=== PATIENT | female | born 1940 | race African-American/Black ===

== ENCOUNTER 2019-01-28 08:26 | Inpatient (IN) | payer MEDICARE, MEDICAID ==
[~2019-01-28] VITALS: Ht 167.6 cm; Wt 52.2 kg
[2019-01-28 09:22] LABS: BASOPHILS % 0.2 % (0.0-2.0); EOSINOPHILS % 0.1 % (0.0-5.0); HEMATOCRIT. 33.7 % (36.0-48.0); HEMOGLOBIN. 11.1 g/dL (12.0-16.0); LYMPHOCYTES % 20.1 % (20.0-50.0); MEAN CORPUSCULAR HEMOGLOBIN 30.1 pg (28.0-32.0); MEAN CORPUSCULAR VOLUME 91.5 fL (81.0-99.0); MEAN PLATELET VOLUME 7.6 fl (7.4-10.4); MONOCYTES % 8.3 % (2.0-8.0); NEUTROPHILS % 71.3 % (40.0-76.0); PLATELET 244 x1000/uL (130-400); RED BLOOD CELL COUNT 3.69 mill/uL (4.2-5.4); RED CELL DISTRIBUTION WIDTH 15.8 % (11.6-14.6)
[2019-01-28 09:23] LABS: CHLORIDE 108 mEq/L (98-107)
[2019-01-28] MEDS ORDERED: ACETAMINOPHEN 325MG TABLET PO ONE (09:30)
[2019-01-28 09:32] LABS: CLARITY URINE CLOUDY (CLEAR); COLOR URINE YELLOW (YELLOW); KETONES URINE NEGATIVE (NEGATIVE); LEUKOCYTE ESTERASE URINE 2+ (NEGATIVE); NITRITE URINE POSITIVE (NEGATIVE); OCCULT BLOOD URINE TRACE (NEGATIVE); PROTEIN URINE 3+ (NEGATIVE); SPECIFIC GRAVITY URINE 1.013 (1.005-1.030); UROBILINOGEN URINE 0.2 E.U./dL (0.2-1.0)
[2019-01-28] MEDS ORDERED: CEFTRIAXONE 1 G PREMIX 50 ML IV ONE (10:00)
[2019-01-28] MEDS ORDERED: HYDRALAZINE HCL 50MG TABLET PO ONE (11:00)
[2019-01-28 12:00] VITALS: BP 209/84
[2019-01-28] MEDS: CLONIDINE 0.2MG TABLET PO PRN (12:32)
[2019-01-28 12:44] VITALS: BP 209/84
[2019-01-28] MEDS ORDERED: ONDANSETRON HCL 4MG/2ML INJ IV PRN (13:00)
[2019-01-28] MEDS ORDERED: NA PHOS,M-B/NA PHOS,DI-BA ENEMA 118ML PR PRN (13:00)
[2019-01-28] MEDS ORDERED: DOCUSATE SODIUM 100MG CAPSULE PO PRN (13:00)
[2019-01-28] MEDS ORDERED: MAGNESIUM/ALUMINUM HYDROXIDE/SIMETHICONE 30ML UDC PO PRN (13:00)
[2019-01-28] MEDS ORDERED: IPRATROPIUM/ALBUTEROL 0.5-3(2.5)MG/3ML NEB INH PRN (13:00)
[2019-01-28] MEDS ORDERED: GUAIFENESIN 200MG/10ML SUGAR FREE UDC PO PRN (13:00)
[2019-01-28] MEDS ORDERED: NITROGLYCERIN 0.4MG TABLET SL SL PRN (13:00)
[2019-01-28] MEDS: ENOXAPARIN 40MG/0.4ML SYR SUBCUT SCH (14:11)
[2019-01-28] MEDS: AMLODIPINE 10MG TABLET PO SCH (14:12)
[2019-01-28] MEDS: HYDRALAZINE HCL 50MG TABLET PO SCH ×2 (14:13→20:47)
[2019-01-28 14:15] VITALS: BP 113/63
[2019-01-28 14:15] LABS: FOLIC ACID (FOLATE) SERUM 11.4 ng/mL (>5.38)
[2019-01-28] MEDS ORDERED: LEVOFLOXACIN 500MG PREMIX 100 ML IV NR (15:00)
[2019-01-28 15:20] VITALS: BP 159/73
[2019-01-28] MEDS ORDERED: HYDR-4135 PO (15:46)
[2019-01-28] MEDS ORDERED: MEMA5TAB15 PO (15:46)
[2019-01-28] MEDS ORDERED: METO25TA6 PO (15:46)
[2019-01-28] MEDS ORDERED: DONE5TAB7 PO (15:46)
[2019-01-28] MEDS ORDERED: CLOP75TA33 PO (15:46)
[2019-01-28] MEDS ORDERED: CLON0.1T PO (15:46)
[2019-01-28] MEDS ORDERED: [UNRECOGNIZED DRUG - CODE] PO (15:46)
[2019-01-28] MEDS ORDERED: FERR325T6 PO (15:46)
[2019-01-28] MEDS ORDERED: MIRT15TA6 PO (15:46)
[2019-01-28] MEDS ORDERED: SIMV40TA5 PO (15:46)
[2019-01-28] MEDS ORDERED: ENAL20TA PO (15:46)
[2019-01-28 17:48] LABS: CREATINE KINASE 48 IU/L (26-192)
[2019-01-28 17:49] LABS: CREATINE KINASE MB FRACTION < 1.0 ng/mL (0.5-3.6)
[2019-01-28 20:00] VITALS: BP 175/81
[2019-01-28] MEDS: FAMOTIDINE 20MG TABLET PO SCH (20:47)
[2019-01-28] MEDS: ASCORBIC ACID 500 MG TABLET PO SCH (20:47)
[2019-01-28] MEDS: METOPROLOL TARTRATE 25MG TABLET PO SCH (20:47)
[2019-01-28] MEDS: LISINOPRIL 20MG TABLET PO SCH (20:53)
[2019-01-28] MEDS ORDERED: ZOLPIDEM TARTRATE 5MG TABLET PO PRN (21:00)
[2019-01-29] VITALS (7 sets, daily range): BP systolic 117–197; BP diastolic 52–82
[2019-01-29 00:10] LABS: CREATINE KINASE 47 IU/L (26-192)
[2019-01-29 00:11] LABS: CREATINE KINASE MB FRACTION < 1.0 ng/mL (0.5-3.6)
[2019-01-29] MEDS: TRAMADOL 50MG TABLET PO PRN ×2 (05:14→14:18)
[2019-01-29] MEDS: HYDRALAZINE HCL 50MG TABLET PO SCH ×3 (05:14→22:00)
[2019-01-29] MEDS: LISINOPRIL 20MG TABLET PO SCH ×2 (08:15→21:00)
[2019-01-29] MEDS: ZINC SULFATE 220 MG ( 50 ) CAPSULE PO SCH (08:16)
[2019-01-29] MEDS: FAMOTIDINE 20MG TABLET PO SCH (08:16)
[2019-01-29] MEDS: ASCORBIC ACID 500 MG TABLET PO SCH ×2 (08:16→20:40)
[2019-01-29] MEDS: AMLODIPINE 10MG TABLET PO SCH (08:16)
[2019-01-29] MEDS: METOPROLOL TARTRATE 25MG TABLET PO SCH ×2 (08:16→20:40)
[2019-01-29] MEDS: CEFTRIAXONE 1 G PREMIX 50 ML IV SCH (09:26)
[2019-01-29] MEDS: ENOXAPARIN 40MG/0.4ML SYR SUBCUT SCH (13:26)
[2019-01-29] MEDS: LEVOFLOXACIN 250MG PREMIX 50 ML IV SCH (14:12)
[2019-01-29] MEDS: ACETAMINOPHEN 325MG TABLET PO PRN (15:54)
[2019-01-29] MEDS: CLONIDINE 0.2MG TABLET PO PRN (15:55)
[2019-01-30] VITALS: BP 129/78
[2019-01-30 04:00] VITALS: BP 146/62
[2019-01-30] MEDS: ACETAMINOPHEN 325MG TABLET PO PRN ×3 (04:40→20:29)
[2019-01-30] MEDS: HYDRALAZINE HCL 50MG TABLET PO SCH ×2 (06:20→14:13)
[2019-01-30 08:00] VITALS: BP 140/59
[2019-01-30] MEDS: AMLODIPINE 10MG TABLET PO SCH (09:16)
[2019-01-30] MEDS: LISINOPRIL 20MG TABLET PO SCH ×2 (09:16→20:30)
[2019-01-30] MEDS: CEFTRIAXONE 1 G PREMIX 50 ML IV SCH (09:17)
[2019-01-30] MEDS: ZINC SULFATE 220 MG ( 50 ) CAPSULE PO SCH (09:17)
[2019-01-30] MEDS: METOPROLOL TARTRATE 25MG TABLET PO SCH ×2 (09:17→20:31)
[2019-01-30] MEDS: ASCORBIC ACID 500 MG TABLET PO SCH ×2 (09:17→20:31)
[2019-01-30] MEDS: FAMOTIDINE 20MG TABLET PO SCH (09:17)
[2019-01-30 12:00] VITALS: BP 156/55
[2019-01-30] MEDS: LEVOFLOXACIN 250MG PREMIX 50 ML IV SCH (14:13)
[2019-01-30] MEDS: ENOXAPARIN 40MG/0.4ML SYR SUBCUT SCH (14:13)
[2019-01-30 16:00] VITALS: BP_SYST 124; BP_SYST 150; BP_DIAS 46; BP_DIAS 65
[2019-01-30 20:00] VITALS: BP 140/50
[2019-01-31] VITALS: BP 144/52
[2019-01-31] MEDS: HYDRALAZINE HCL 50MG TABLET PO SCH ×4 (00:38→21:00)
[2019-01-31] MEDS: ACETAMINOPHEN 325MG TABLET PO PRN ×3 (00:38→14:35)
[2019-01-31 04:00] VITALS: BP 165/67
[2019-01-31 08:00] VITALS: BP 162/60
[2019-01-31] MEDS: ZINC SULFATE 220 MG ( 50 ) CAPSULE PO SCH (08:37)
[2019-01-31] MEDS: METOPROLOL TARTRATE 25MG TABLET PO SCH ×2 (08:37→20:35)
[2019-01-31] MEDS: FAMOTIDINE 20MG TABLET PO SCH (08:37)
[2019-01-31] MEDS: AMLODIPINE 10MG TABLET PO SCH (08:37)
[2019-01-31] MEDS: ASCORBIC ACID 500 MG TABLET PO SCH ×2 (08:37→20:35)
[2019-01-31] MEDS: LISINOPRIL 20MG TABLET PO SCH ×2 (08:37→20:35)
[2019-01-31] MEDS: CEFTRIAXONE 1 G PREMIX 50 ML IV SCH (09:32)
[2019-01-31 12:00] VITALS: BP 136/55
[2019-01-31] MEDS: ENOXAPARIN 40MG/0.4ML SYR SUBCUT SCH (14:35)
[2019-01-31] MEDS: LEVOFLOXACIN 250MG PREMIX 50 ML IV SCH (14:36)
[2019-01-31 16:00] VITALS: BP 143/59
[2019-01-31 20:00] VITALS: BP 164/52
[2019-02-01] VITALS: BP 152/88
[2019-02-01 04:00] VITALS: BP 160/61
[2019-02-01] MEDS: CLONIDINE 0.2MG TABLET PO PRN (05:21)
[2019-02-01] MEDS: HYDRALAZINE HCL 50MG TABLET PO SCH ×2 (05:21→13:22)
[2019-02-01 08:42] VITALS: BP 144/59
[2019-02-01] MEDS: FAMOTIDINE 20MG TABLET PO SCH (09:10)
[2019-02-01] MEDS: METOPROLOL TARTRATE 25MG TABLET PO SCH (09:10)
[2019-02-01] MEDS: ASCORBIC ACID 500 MG TABLET PO SCH (09:10)
[2019-02-01] MEDS: LISINOPRIL 20MG TABLET PO SCH (09:10)
[2019-02-01] MEDS: AMLODIPINE 10MG TABLET PO SCH (09:11)
[2019-02-01] MEDS: ZINC SULFATE 220 MG ( 50 ) CAPSULE PO SCH (09:11)
[2019-02-01] MEDS: CEFTRIAXONE 1 G PREMIX 50 ML IV SCH (09:13)
[2019-02-01] MEDS ORDERED: LEVOFLOXACIN 250MG TABLET PO SCH (11:00)
[2019-02-01 12:14] VITALS: BP 137/63
[2019-02-01] MEDS ORDERED: CEFAZOLIN 500 MG in DEXTROSE 5% WATER 50 ML IV SCH (13:00)
[2019-02-01] MEDS ORDERED: ENOXAPARIN 30MG/0.3ML SYR SUBCUT SCH (14:00)
[2019-02-01 15:33] VITALS: BP_SYST 121; BP_SYST 137; BP_DIAS 54; BP_DIAS 63
[2019-02-01 16:09] VITALS: BP 121/54
== END 2019-02-01 17:18 | disposition home health service (06) | DRG 689 ==
LOC: ER 08:26 → 8WST 10:04 → EDBEDREQ 10:15 → ENRESERV 10:37
PROVIDERS: ADMIT Internal Medicine; ATTEND Internal Medicine
DX: N39.0 Urinary tract infection, site not specified (principal); G92 Toxic encephalopathy; E44.0 Moderate protein-calorie malnutrition; Z68.1 Body mass index [BMI] 19.9 or less, adult; D63.8 Anemia in other chronic diseases classified elsewhere; E78.5 Hyperlipidemia, unspecified; I10 Essential (primary) hypertension; F03.90 Unspecified dementia, unspecified severity, without behavioral disturbance, psychotic disturbance, mood disturbance, and anxiety; Z96.649 Presence of unspecified artificial hip joint; Z88.6 Allergy status to analgesic agent
CPT/HCPCS: 36415; 71045; 80061; 82550; 82553; 82607; 82746; 83036; 83540; 83550; 83605; 84484; 87077; 93005; 93306; 93970; 96365; 97162; 97166; 97530; 97535; 99291; J0690; J0696; J1650; J1956; J2405; J7050; J7060

== ENCOUNTER 2021-07-05 13:52 | Inpatient (IN) | payer MEDICARE, MEDICAID ==
[~2021-07-05] VITALS: Ht 162.6 cm; Wt 48.5 kg
[~2021-07-05 13:52] MED LIST: CLON0.1T PO; CLOP75TA33 PO; DONE5TAB7 PO; ENAL20TA18 PO; FERR325T6 PO; HYDR-4135 PO; MEMA5TAB42 PO; METO25TA6 PO; MIRT-89 PO; NIFE-72 PO; SIMV-46 PO
[2021-07-05 14:55] LABS: BASOPHILS % 0.4 % (0.0-2.0); EOSINOPHILS % 0.3 % (0.0-5.0); HEMATOCRIT. 35.3 % (36.0-48.0); HEMOGLOBIN. 11.5 g/dL (12.0-16.0); LYMPHOCYTES % 15.2 % (20.0-50.0); MEAN CORPUSCULAR HEMOGLOBIN 30.4 pg (28.0-32.0); MEAN CORPUSCULAR VOLUME 93.3 fL (81.0-99.0); MEAN PLATELET VOLUME 7.8 fl (7.4-10.4); MONOCYTES % 13.7 % (2.0-8.0); NEUTROPHILS % 70.4 % (40.0-76.0); PLATELET 265 x1000/uL (130-400); RED BLOOD CELL COUNT 3.79 mill/uL (4.2-5.4); RED CELL DISTRIBUTION WIDTH 16.3 % (11.6-14.6)
[2021-07-05 15:02] LABS: CHLORIDE 110 mEq/L (98-107)
[2021-07-05 16:06] LABS: CLARITY URINE CLOUDY (CLEAR); COLOR URINE YELLOW (YELLOW); KETONES URINE NEGATIVE (NEGATIVE); LEUKOCYTE ESTERASE URINE 1+ (NEGATIVE); NITRITE URINE NEGATIVE (NEGATIVE); OCCULT BLOOD URINE 2+ (NEGATIVE); PROTEIN URINE 3+ (NEGATIVE); UROBILINOGEN URINE 0.2 E.U./dL (0.2-1.0)
[2021-07-05] MEDS ORDERED: CEFTRIAXONE 1 G PREMIX 50 ML IV ONE (16:30)
[2021-07-05 21:45] VITALS: BP 160/87
[2021-07-05] MEDS ORDERED: TRAM50TA3 PO ×2 (22:01)
[2021-07-05] MEDS ORDERED: TOPUD PO (22:01)
[2021-07-05] MEDS ORDERED: ONDA4TAB5 PO (22:01)
[2021-07-05] MEDS ORDERED: TC1U15 TOP (22:01)
[2021-07-05] MEDS ORDERED: ACETAMINOPHEN 325MG TABLET PO SCH (22:30)
[2021-07-05] MEDS ORDERED: ONDANSETRON HCL 4MG/2ML INJ IV PRN (22:30)
[2021-07-05] MEDS ORDERED: CEFTRIAXONE 1 G PREMIX 50 ML IV SCH (22:30)
[2021-07-05] MEDS: SODIUM CHLORIDE 0.9% 1,000 ML IV SCH (23:11)
[2021-07-05] MEDS: ATORVASTATIN CALCIUM 40MG TABLET PO SCH (23:11)
[2021-07-05] MEDS: HYDRALAZINE HCL 50MG TABLET PO SCH (23:12)
[2021-07-05] MEDS: METOPROLOL TARTRATE 25MG TABLET PO SCH (23:12)
[2021-07-06] VITALS: BP 141/81
[2021-07-06 03:55] VITALS: BP 160/75
[2021-07-06] MEDS: TRAMADOL 50MG TABLET PO PRN ×3 (04:56→16:18)
[2021-07-06] MEDS: HYDRALAZINE HCL 50MG TABLET PO SCH ×3 (06:02→21:44)
[2021-07-06 06:59] LABS: CHLORIDE 111 mEq/L (98-107)
[2021-07-06 07:11] LABS: BASOPHILS % 0.3 % (0.0-2.0); EOSINOPHILS % 1.1 % (0.0-5.0); HEMOGLOBIN. 11.2 g/dL (12.0-16.0); LYMPHOCYTES % 13.6 % (20.0-50.0); MEAN CORPUSCULAR HEMOGLOBIN 30.9 pg (28.0-32.0); MEAN CORPUSCULAR VOLUME 93.8 fL (81.0-99.0); MEAN PLATELET VOLUME 7.6 fl (7.4-10.4); MONOCYTES % 13.2 % (2.0-8.0); NEUTROPHILS % 71.8 % (40.0-76.0); PLATELET 246 x1000/uL (130-400); RED BLOOD CELL COUNT 3.63 mill/uL (4.2-5.4)
[2021-07-06 08:00] VITALS: BP 166/66
[2021-07-06] MEDS: DONEPEZIL HCL 5MG TABLET PO SCH (09:19)
[2021-07-06] MEDS: NIFEDIPINE XL 60MG TAB PO SCH (09:20)
[2021-07-06] MEDS: FERROUS SULFATE 325MG TABLET PO SCH (09:20)
[2021-07-06] MEDS: MEMANTINE HCL 5MG TABLET PO SCH ×2 (09:20→16:18)
[2021-07-06] MEDS: METOPROLOL TARTRATE 25MG TABLET PO SCH ×2 (09:20→16:46)
[2021-07-06] MEDS: ENALAPRIL 5MG TABLET PO SCH (09:21)
[2021-07-06] MEDS: ENOXAPARIN 30MG/0.3ML SYR SUBCUT SCH (09:21)
[2021-07-06] MEDS: PANTOPRAZOLE SODIUM 40 MG/VIAL IV SCH (09:23)
[2021-07-06 12:00] VITALS: BP 124/57
[2021-07-06 13:30] LABS: ETHANOL BLOOD < 10 mg/dL
[2021-07-06 13:38] LABS: T4 FREE 1.09 ng/dL (0.76-1.46)
[2021-07-06 16:00] VITALS: BP 116/56
[2021-07-06] MEDS: SODIUM CHLORIDE 0.9% 1,000 ML IV SCH ×2 (16:11→18:11)
[2021-07-06] MEDS ORDERED: ACETAMINOPHEN 325MG TABLET PO PRN (16:15)
[2021-07-06] MEDS ORDERED: NALOXONE HCL 0.4MG/ML VIAL IV PRN (16:15)
[2021-07-06] MEDS: CEFTRIAXONE 1,000 MG in DEXTROSE 5% WATER 50 ML IV SCH (18:10)
[2021-07-06] MEDS: LACTULOSE 20G/30ML UDC PO SCH (18:49)
[2021-07-06 20:00] VITALS: BP 120/65
[2021-07-06] MEDS ORDERED: ATORVASTATIN CALCIUM 40MG TABLET PO SCH (21:00)
[2021-07-06] MEDS: MIRTAZAPINE 15MG TABLET PO SCH (21:45)
[2021-07-06] MEDS: ATORVASTATIN CALCIUM 40MG TABLET PO SCH (21:45)
[2021-07-07] VITALS (7 sets, daily range): BP systolic 108–158; BP diastolic 51–79
[2021-07-07] MEDS: HYDRALAZINE HCL 50MG TABLET PO SCH ×3 (05:46→21:29)
[2021-07-07] MEDS: TRAMADOL 50MG TABLET PO PRN ×2 (05:47→10:08)
[2021-07-07 09:10] LABS: FOLIC ACID (FOLATE) SERUM 10.8 ng/mL (>5.38)
[2021-07-07] MEDS: ENALAPRIL 5MG TABLET PO SCH (10:06)
[2021-07-07] MEDS: LACTULOSE 20G/30ML UDC PO SCH ×2 (10:06→17:13)
[2021-07-07] MEDS: PANTOPRAZOLE SODIUM 40 MG/VIAL IV SCH (10:06)
[2021-07-07] MEDS: METOPROLOL TARTRATE 25MG TABLET PO SCH ×2 (10:07→17:15)
[2021-07-07] MEDS: ENOXAPARIN 30MG/0.3ML SYR SUBCUT SCH (10:07)
[2021-07-07] MEDS: MEMANTINE HCL 5MG TABLET PO SCH ×2 (10:07→17:14)
[2021-07-07] MEDS: NIFEDIPINE XL 60MG TAB PO SCH (10:07)
[2021-07-07] MEDS: DONEPEZIL HCL 5MG TABLET PO SCH (10:08)
[2021-07-07] MEDS: SODIUM CHLORIDE 0.9% 1,000 ML IV SCH ×3 (10:10→23:30)
[2021-07-07] MEDS: FERROUS SULFATE 325MG TABLET PO SCH (10:12)
[2021-07-07] MEDS: CYANOCOBALAMIN 1000MCG/ML VIAL IM SCH (10:12)
[2021-07-07] MEDS ORDERED: IOHEXOL-300 100 ML BOTTLE ONE (14:36)
[2021-07-07] MEDS: CEFTRIAXONE 1,000 MG in DEXTROSE 5% WATER 50 ML IV SCH (17:13)
[2021-07-07] MEDS: ATORVASTATIN CALCIUM 40MG TABLET PO SCH (21:28)
[2021-07-07] MEDS: MIRTAZAPINE 15MG TABLET PO SCH (21:29)
[2021-07-08 04:00] VITALS: BP 152/58
[2021-07-08] MEDS: ACETAMINOPHEN 325MG TABLET PO PRN ×2 (05:30→17:40)
[2021-07-08] MEDS: HYDRALAZINE HCL 50MG TABLET PO SCH ×3 (05:30→22:24)
[2021-07-08 05:34] LABS: BASOPHILS % 0.1 % (0.0-2.0); EOSINOPHILS % 1.1 % (0.0-5.0); HEMATOCRIT. 29.9 % (36.0-48.0); HEMOGLOBIN. 9.8 g/dL (12.0-16.0); LYMPHOCYTES % 15.9 % (20.0-50.0); MEAN CORPUSCULAR HEMOGLOBIN 30.6 pg (28.0-32.0); MEAN CORPUSCULAR VOLUME 93.7 fL (81.0-99.0); MEAN PLATELET VOLUME 7.8 fl (7.4-10.4); MONOCYTES % 14.2 % (2.0-8.0); NEUTROPHILS % 68.7 % (40.0-76.0); PLATELET 232 x1000/uL (130-400); RED CELL DISTRIBUTION WIDTH 15.8 % (11.6-14.6)
[2021-07-08 06:00] LABS: CHLORIDE 117 mEq/L (98-107)
[2021-07-08 08:00] VITALS: BP 175/79
[2021-07-08] MEDS: LACTULOSE 20G/30ML UDC PO SCH ×2 (09:02→17:00)
[2021-07-08] MEDS: FAMOTIDINE 20MG/2ML VIAL IV SCH (09:02)
[2021-07-08] MEDS: CYANOCOBALAMIN 1000MCG/ML VIAL IM SCH (09:02)
[2021-07-08] MEDS: DONEPEZIL HCL 5MG TABLET PO SCH (09:03)
[2021-07-08] MEDS: ENALAPRIL 5MG TABLET PO SCH (09:03)
[2021-07-08] MEDS: NIFEDIPINE XL 60MG TAB PO SCH (09:03)
[2021-07-08] MEDS: FERROUS SULFATE 325MG TABLET PO SCH (09:03)
[2021-07-08] MEDS: MEMANTINE HCL 5MG TABLET PO SCH ×2 (09:03→17:41)
[2021-07-08] MEDS: METOPROLOL TARTRATE 25MG TABLET PO SCH ×2 (09:04→17:41)
[2021-07-08] MEDS: SODIUM CHLORIDE 0.9% 1,000 ML IV SCH ×2 (10:52→20:30)
[2021-07-08 12:00] VITALS: BP 119/82
[2021-07-08] MEDS: TRAMADOL 50MG TABLET PO PRN (12:44)
[2021-07-08 16:00] VITALS: BP 140/66
[2021-07-08 20:00] VITALS: BP 152/88
[2021-07-08] MEDS: CEFTRIAXONE 1,000 MG in DEXTROSE 5% WATER 50 ML IV SCH (20:15)
[2021-07-08] MEDS: MIRTAZAPINE 15MG TABLET PO SCH (22:24)
[2021-07-08] MEDS: ATORVASTATIN CALCIUM 40MG TABLET PO SCH (22:24)
[2021-07-09] VITALS: BP 122/73
[2021-07-09 04:00] VITALS: BP 162/69
[2021-07-09 05:28] LABS: BASOPHILS % 0.4 % (0.0-2.0); EOSINOPHILS % 0.2 % (0.0-5.0); HEMATOCRIT. 36.5 % (36.0-48.0); HEMOGLOBIN. 11.7 g/dL (12.0-16.0); LYMPHOCYTES % 15.7 % (20.0-50.0); MEAN CORPUSCULAR HEMOGLOBIN 30.1 pg (28.0-32.0); MEAN PLATELET VOLUME 7.8 fl (7.4-10.4); NEUTROPHILS % 75.7 % (40.0-76.0); PLATELET 293 x1000/uL (130-400); RED BLOOD CELL COUNT 3.88 mill/uL (4.2-5.4)
[2021-07-09] MEDS: HYDRALAZINE HCL 50MG TABLET PO SCH (05:56)
[2021-07-09] MEDS: SODIUM CHLORIDE 0.9% 1,000 ML IV SCH ×2 (05:56→15:47)
[2021-07-09 06:06] LABS: CHLORIDE 114 mEq/L (98-107)
[2021-07-09] MEDS ORDERED: PHENYLEPHRINE HCL 10 MG/ML 1ML (IV VIAL) IV ONE (07:12)
[2021-07-09] MEDS ORDERED: PROPOFOL 200MG/20ML VIAL IV ONE (07:58)
[2021-07-09] MEDS ORDERED: FENTANYL CITRATE/PF 50MCG/ML 2ML VIAL ONE (07:58)
[2021-07-09] MEDS ORDERED: MIDAZOLAM HCL 2 MG/2 ML VIAL ONE (07:58)
[2021-07-09] MEDS ORDERED: LIDOCAINE HCL 1% 20ML VIAL (Pyxis) INJ ONE (07:59)
[2021-07-09] MEDS ORDERED: MEPERIDINE HCL/PF 25MG/ML CPJ IV PRN (09:15)
[2021-07-09] MEDS ORDERED: ONDANSETRON HCL 4MG/2ML INJ IV PRN (09:15)
[2021-07-09] MEDS ORDERED: SODIUM CHLORIDE 0.9% 1,000 ML IV SCH (09:15)
[2021-07-09] MEDS: HYDROMORPHONE HCL/PF 2MG/ML CPJ IV PRN ×2 (09:17→09:38)
[2021-07-09] MEDS ORDERED: HYDRALAZINE 20MG/ML VIAL IV PRN (11:15)
[2021-07-09 12:04] VITALS: BP 168/74
[2021-07-09] MEDS: ENALAPRIL 5MG TABLET PO SCH (12:23)
[2021-07-09] MEDS: METOPROLOL TARTRATE 25MG TABLET PO SCH ×2 (12:23→16:59)
[2021-07-09] MEDS: NIFEDIPINE XL 60MG TAB PO SCH ×2 (12:23→22:02)
[2021-07-09] MEDS: FERROUS SULFATE 325MG TABLET PO SCH (12:23)
[2021-07-09] MEDS: MEMANTINE HCL 5MG TABLET PO SCH ×2 (12:23→16:59)
[2021-07-09] MEDS: CYANOCOBALAMIN 1000MCG/ML VIAL IM SCH (12:24)
[2021-07-09] MEDS: FAMOTIDINE 20MG/2ML VIAL IV SCH (12:24)
[2021-07-09] MEDS: DONEPEZIL HCL 5MG TABLET PO SCH (12:24)
[2021-07-09] MEDS: LACTULOSE 20G/30ML UDC PO SCH ×2 (12:24→16:59)
[2021-07-09] MEDS: HYDRALAZINE HCL 25MG TABLET PO SCH ×2 (15:46→21:58)
[2021-07-09 16:00] VITALS: BP 152/70
[2021-07-09] MEDS: CEFTRIAXONE 1,000 MG in DEXTROSE 5% WATER 50 ML IV SCH (16:59)
[2021-07-09 20:00] VITALS: BP 167/69
[2021-07-09] MEDS: ATORVASTATIN CALCIUM 40MG TABLET PO SCH (21:58)
[2021-07-09] MEDS: MIRTAZAPINE 15MG TABLET PO SCH (21:58)
[2021-07-10] VITALS: BP 157/87
[2021-07-10] MEDS ORDERED: LORAZEPAM 2MG/ML CPJ IV NR
[2021-07-10] MEDS: SODIUM CHLORIDE 0.9% 1,000 ML IV SCH ×2 (02:30→13:44)
[2021-07-10 04:00] VITALS: BP 163/86
[2021-07-10] MEDS: HYDRALAZINE HCL 25MG TABLET PO SCH ×3 (06:13→21:30)
[2021-07-10 07:11] LABS: CHLORIDE 113 mEq/L (98-107)
[2021-07-10 07:23] LABS: BASOPHILS % 0.2 % (0.0-2.0); HEMATOCRIT. 34.3 % (36.0-48.0); HEMOGLOBIN. 11.2 g/dL (12.0-16.0); LYMPHOCYTES % 11.6 % (20.0-50.0); MEAN CORPUSCULAR HEMOGLOBIN 30.8 pg (28.0-32.0); MEAN CORPUSCULAR VOLUME 93.8 fL (81.0-99.0); MEAN PLATELET VOLUME 7.9 fl (7.4-10.4); MONOCYTES % 9.7 % (2.0-8.0); NEUTROPHILS % 78.5 % (40.0-76.0); PLATELET 328 x1000/uL (130-400); RED BLOOD CELL COUNT 3.65 mill/uL (4.2-5.4); RED CELL DISTRIBUTION WIDTH 15.8 % (11.6-14.6)
[2021-07-10 08:00] VITALS: BP 154/89
[2021-07-10] MEDS: ENALAPRIL 5MG TABLET PO SCH (09:20)
[2021-07-10] MEDS: MEMANTINE HCL 5MG TABLET PO SCH ×2 (09:20→18:40)
[2021-07-10] MEDS: NIFEDIPINE XL 60MG TAB PO SCH ×2 (09:20→21:30)
[2021-07-10] MEDS: METOPROLOL TARTRATE 25MG TABLET PO SCH ×2 (09:20→18:40)
[2021-07-10] MEDS: FERROUS SULFATE 325MG TABLET PO SCH (09:20)
[2021-07-10] MEDS: DONEPEZIL HCL 5MG TABLET PO SCH (09:20)
[2021-07-10] MEDS: FAMOTIDINE 20MG/2ML VIAL IV SCH (09:21)
[2021-07-10] MEDS: CYANOCOBALAMIN 1000MCG/ML VIAL IM SCH (09:21)
[2021-07-10] MEDS: LACTULOSE 20G/30ML UDC PO SCH ×2 (09:21→18:40)
[2021-07-10] MEDS ORDERED: LIDOCAINE HCL 1% 20ML VIAL (Pyxis) INJ ONE (10:27)
[2021-07-10 12:00] VITALS: BP 148/64
[2021-07-10] MEDS ORDERED: KCL 20MEQ/100ML PREMIX 100 ML IV NR (13:00)
[2021-07-10 16:00] VITALS: BP 139/68
[2021-07-10 20:00] VITALS: BP 146/77
[2021-07-10] MEDS: ATORVASTATIN CALCIUM 40MG TABLET PO SCH (21:29)
[2021-07-10] MEDS: MIRTAZAPINE 15MG TABLET PO SCH (21:30)
[2021-07-11] VITALS: BP 134/62
[2021-07-11 03:45] VITALS: BP 159/70
[2021-07-11] MEDS: HYDRALAZINE HCL 25MG TABLET PO SCH ×3 (05:52→21:35)
[2021-07-11 07:07] LABS: BASOPHILS % 0.3 % (0.0-2.0); EOSINOPHILS % 0.1 % (0.0-5.0); HEMOGLOBIN. 11.7 g/dL (12.0-16.0); MEAN CORPUSCULAR HEMOGLOBIN 30.5 pg (28.0-32.0); MEAN CORPUSCULAR VOLUME 93.8 fL (81.0-99.0); MEAN PLATELET VOLUME 7.5 fl (7.4-10.4); MONOCYTES % 9.1 % (2.0-8.0); NEUTROPHILS % 77.5 % (40.0-76.0); PLATELET 315 x1000/uL (130-400); RED BLOOD CELL COUNT 3.84 mill/uL (4.2-5.4); RED CELL DISTRIBUTION WIDTH 15.9 % (11.6-14.6)
[2021-07-11 07:18] LABS: CHLORIDE 115 mEq/L (98-107)
[2021-07-11 08:03] VITALS: BP 107/74
[2021-07-11] MEDS: ENALAPRIL 5MG TABLET PO SCH (09:00)
[2021-07-11] MEDS: NIFEDIPINE XL 60MG TAB PO SCH ×2 (09:00→21:29)
[2021-07-11] MEDS: METOPROLOL TARTRATE 25MG TABLET PO SCH ×2 (09:42→16:25)
[2021-07-11] MEDS: SODIUM CHLORIDE 0.9% 1,000 ML IV SCH ×2 (09:42→18:47)
[2021-07-11] MEDS: MEMANTINE HCL 5MG TABLET PO SCH ×2 (09:43→16:25)
[2021-07-11] MEDS: CYANOCOBALAMIN 1000MCG/ML VIAL IM SCH (09:43)
[2021-07-11] MEDS: FERROUS SULFATE 325MG TABLET PO SCH (09:43)
[2021-07-11] MEDS: DONEPEZIL HCL 5MG TABLET PO SCH (09:43)
[2021-07-11] MEDS: FAMOTIDINE 20MG/2ML VIAL IV SCH (09:43)
[2021-07-11] MEDS: LACTULOSE 20G/30ML UDC PO SCH ×2 (09:43→16:24)
[2021-07-11] MEDS ORDERED: POTASSIUM CHLORIDE INJ 40 MEQ in DEXT 5% WATER 250 ML IV SCH (10:00)
[2021-07-11 12:05] VITALS: BP 139/73
[2021-07-11 16:00] VITALS: BP 156/80
[2021-07-11 20:00] VITALS: BP 160/82
[2021-07-11] MEDS: MIRTAZAPINE 15MG TABLET PO SCH (21:29)
[2021-07-11] MEDS: ATORVASTATIN CALCIUM 40MG TABLET PO SCH (21:29)
[2021-07-12] VITALS: BP 161/83
[2021-07-12] MEDS: ACETAMINOPHEN 325MG TABLET PO PRN ×2 (00:02→12:30)
[2021-07-12 04:00] VITALS: BP 174/95
[2021-07-12] MEDS: SODIUM CHLORIDE 0.9% 1,000 ML IV SCH ×2 (06:02→15:20)
[2021-07-12] MEDS: HYDRALAZINE HCL 25MG TABLET PO SCH ×2 (06:03→15:16)
[2021-07-12 08:18] VITALS: BP 154/69
[2021-07-12] MEDS ORDERED: FAMOTIDINE 20MG TABLET PO SCH (09:00)
[2021-07-12] MEDS: CYANOCOBALAMIN 1000MCG/ML VIAL IM SCH (09:25)
[2021-07-12] MEDS: ENALAPRIL 5MG TABLET PO SCH (09:25)
[2021-07-12] MEDS: LACTULOSE 20G/30ML UDC PO SCH ×2 (09:25→16:57)
[2021-07-12] MEDS: FERROUS SULFATE 325MG TABLET PO SCH (09:26)
[2021-07-12] MEDS: DONEPEZIL HCL 5MG TABLET PO SCH (09:26)
[2021-07-12] MEDS: MEMANTINE HCL 5MG TABLET PO SCH ×2 (09:26→17:00)
[2021-07-12] MEDS: NIFEDIPINE XL 60MG TAB PO SCH (09:26)
[2021-07-12] MEDS: METOPROLOL TARTRATE 25MG TABLET PO SCH ×2 (09:26→17:00)
[2021-07-12 11:30] LABS: BASOPHILS % 0.3 % (0.0-2.0); EOSINOPHILS % 0.3 % (0.0-5.0); HEMATOCRIT. 34.8 % (36.0-48.0); HEMOGLOBIN. 11.7 g/dL (12.0-16.0); LYMPHOCYTES % 17.6 % (20.0-50.0); MEAN CORPUSCULAR HEMOGLOBIN 30.9 pg (28.0-32.0); MEAN CORPUSCULAR VOLUME 92.2 fL (81.0-99.0); MEAN PLATELET VOLUME 7.1 fl (7.4-10.4); MONOCYTES % 7.7 % (2.0-8.0); NEUTROPHILS % 74.1 % (40.0-76.0); PLATELET 346 x1000/uL (130-400); RED BLOOD CELL COUNT 3.78 mill/uL (4.2-5.4)
[2021-07-12 11:44] LABS: CHLORIDE 115 mEq/L (98-107)
[2021-07-12 12:30] VITALS: BP 122/61
[2021-07-12 13:11] VITALS: BP 122/89
[2021-07-12] MEDS ORDERED: POTASSIUM CHLORIDE 20MEQ/PACKET PO NR (14:45)
[2021-07-12 15:38] VITALS: BP 126/58
[2021-07-12 17:06] LABS: 25-HYDROXY VITAMIN D3 9.1 ng/mL (.)
[2021-07-20] MEDS ORDERED: CYANOCOBALAMIN 1000MCG/ML VIAL IM SCH (09:00)
== END 2021-07-12 18:26 | DRG 853 ==
LOC: ER 13:52 → 6WST 18:17 → EDBEDREQTM 18:19 → EDBEDREQ 18:19 → ENRESERV 18:59 → UNDODISIN 07-06 12:02
PROVIDERS: ADMIT Internal Medicine; ATTEND Internal Medicine
PROC: 0TBB8ZZ Excision of Bladder, Via Natural or Artificial Opening Endoscopic (ICD-10-PCS; principal; 2021-07-09)
PROC: 4A10X4Z Monitoring of Central Nervous Electrical Activity, External Approach (ICD-10-PCS; 2021-07-10)
PROC: 02HV33Z Insertion of Infusion Device into Superior Vena Cava, Percutaneous Approach (ICD-10-PCS; 2021-07-10)
PROC: B518ZZA Fluoroscopy of Superior Vena Cava, Guidance (ICD-10-PCS; 2021-07-10)
DX: A41.9 Sepsis, unspecified organism (principal); G92.8 Other toxic encephalopathy; N39.0 Urinary tract infection, site not specified; N17.9 Acute kidney failure, unspecified; R47.01 Aphasia; E46 Unspecified protein-calorie malnutrition; I31.3 Pericardial effusion (noninflammatory); C67.9 Malignant neoplasm of bladder, unspecified; F03.90 Unspecified dementia, unspecified severity, without behavioral disturbance, psychotic disturbance, mood disturbance, and anxiety; E78.00 Pure hypercholesterolemia, unspecified; I10 Essential (primary) hypertension; M19.90 Unspecified osteoarthritis, unspecified site; Z20.822 Contact with and (suspected) exposure to COVID-19; R47.1 Dysarthria and anarthria; Z96.642 Presence of left artificial hip joint; D64.9 Anemia, unspecified; E53.8 Deficiency of other specified B group vitamins; E78.5 Hyperlipidemia, unspecified; E87.6 Hypokalemia; Z88.6 Allergy status to analgesic agent; Z79.899 Other long term (current) drug therapy; Z79.1 Long term (current) use of non-steroidal anti-inflammatories (NSAID); Z86.73 Personal history of transient ischemic attack (TIA), and cerebral infarction without residual deficits; Z87.891 Personal history of nicotine dependence
CPT/HCPCS: 36415; 36573; 70551; 71045; 71260; 72192; 73700; 74177; 80048; 80053; 80320; 81003; 82140; 82306; 82607; 82746; 82962; 83036; 83735; 84145; 84439; 84443; 84481; 85025; 87426; 88305; 92523; 93005; 93306; 97116; 97162; 97164; 97165; 97168; 97530; 99291; C1725; C1893; C9113; J0360; J0696; J1170; J1650; J2060; J2250; J2370; J2704; J3010; J3420; J3480; J3490; J7030; J7060; Q9967; G0480